=== PATIENT | male | born 1955 ===

== ENCOUNTER 2023-08-29 08:07 | Day surgery (SDC) | payer MEDICARE, OTHER ==
[~2023-08-29 08:07] MED LIST: Sodium Chloride 0.9% 10 ML Syringe FLUSH PRN; Sodium Chloride 0.9% 2.5 ML Syringe FLUSH PRN; Sodium Chloride 0.9% 20 ML SDV IV PRN
[2023-08-29] MEDS: Lactated Ringers 1,000 ML IV SCH (08:39)
[2023-08-29] MEDS ORDERED: dexmedeTOMIDine HCl 200 MCG/2 ML SDV ONE (09:02)
[2023-08-29] MEDS ORDERED: propofoL 50 ML ONE (09:57)
[2023-08-29] MEDS ORDERED: Propofol 200 MG/20 ML SDV ONE (10:14)
[2023-08-29 11:00] VITALS: BP 95/43; PULSE 63
== END 2023-08-29 11:10 | disposition home or self-care (01) ==
LOC: MW.SDS 08:07
PROVIDERS: ATTEND Surgery
DX: Z12.11 Encounter for screening for malignant neoplasm of colon (principal); D12.3 Benign neoplasm of transverse colon; K57.30 Diverticulosis of large intestine without perforation or abscess without bleeding; K31.7 Polyp of stomach and duodenum; K20.0 Eosinophilic esophagitis; K21.9 Gastro-esophageal reflux disease without esophagitis; I10 Essential (primary) hypertension; G47.33 Obstructive sleep apnea (adult) (pediatric); E78.00 Pure hypercholesterolemia, unspecified; I25.10 Atherosclerotic heart disease of native coronary artery without angina pectoris; E66.9 Obesity, unspecified; Z79.82 Long term (current) use of aspirin; Z79.899 Other long term (current) drug therapy; Z68.30 Body mass index [BMI] 30.0-30.9, adult
CPT/HCPCS: 43239; 45380; 88305; J2704; J7120; 00813; J3490